=== PATIENT | female | born 1990 | race Caucasian/White ===

== ENCOUNTER 2017-11-04 22:23 | Emergency (ER) | payer MEDICAID ==
[2017-11-04 22:30] VITALS: PULSE 60; TEMP 97.7; O2SAT 99
[2017-11-04] MEDS ORDERED: Lidocaine 1% Inj (20ml) INFIL ONE (22:45)
[2017-11-04] MEDS ORDERED: Lidocaine 2% MPF (5 ml) Inj ONE (22:58)
[2017-11-04] MEDS ORDERED: Bacitracin 500 Units/gm Oint Foilpak UD ONE (23:29)
--- NOTE | 2017-11-04 23:37 | C.PDOC ---
History Of Present Illness 27 year old female presents to the ED for an evaluation of fish hook stuck to her right 2nd finger prior to arrival after casting it while fishing. She denies any sensory changes. Patient reports she is UTD with tetanus vaccination. Time Seen by Provider: 11/04/17 22:39 Chief Complaint (Nursing): Abnormal Skin Integrity History Per: Patient History/Exam Limitations: no limitations Onset/Duration Of Symptoms: Hrs Current Symptoms Are (Timing): Still Present Location Of Injury: Right: Hand (right 2nd finger ) Quality Of Symptoms: Painful Past Medical History Reviewed: Historical Data, Nursing Documentation, Vital Signs Vital Signs: Last Vital Signs Temp 97.7 F 11/04/17 22:26 Pulse 60 11/04/17 22:26 Resp 20 11/04/17 23:43 BP Pulse Ox 99 11/05/17 01:44 - Medical History PMH: No Chronic Diseases Surgical History: No Surg Hx Family History: States: No Known Family Hx - Social History Hx Tobacco Use: No Hx Alcohol Use: No Hx Substance Use: No Review Of Systems Except As Marked, All Systems Reviewed And Found Negative. Musculoskeletal: Positive for: Other (Pain to right 2nd finger ) Neurological: Positive for: Numbness Physical Exam - Physical Exam Appears: Well, Non-toxic, No Acute Distress Skin: Warm, Dry Head: Atraumatic, Normacephalic Eye(s): bilateral: Normal Inspection, EOMI Nose: Normal Oral Mucosa: Moist Neck: Normal ROM, Supple Chest: Symmetrical Respiratory: No Accessory Muscle Use, Other (Speaking full sentences ) Extremity: Normal ROM, Capillary Refill (<2 sec), Other (Fish hook noted to the distal aspect of right 2nd finger ) Pulses: Left Radial: Normal, Right Radial: Normal Neurological/Psych: Oriented x3, Normal Cognition, Normal Motor, Normal Sensation Gait: Steady ED Course And Treatment O2 Sat by Pulse Oximetry: 99 (RA) Pulse Ox Interpretation: Normal - Other Rad 2nd finger xr X-Ray: Interpreted by Me, Viewed By Me Interpretation: (+) fb, no bone involvement Progress Note: Patient given Keflex 500mg PO. Hook removed without difficulty, discussed signs of concern for wound infection and wound care. Reassessment Condition: Improved Medical Decision Making Medical Decision Making: Foreign Body removal: Performed by the emergency provider Timeout: A timeout to verify the correct patient, procedure, and site was performed immediately prior to the procedure. Indication: Foreign body in right second finger Procedure: The fish hook was removed using lidocaine 1%. No incision was made Post-procedure: Patient tolerated the procedure well with no immediate complications. The foreign body was removed without difficulty. Disposition - Disposition Disposition: HOME/ ROUTINE Disposition Time: 23:36 Condition: STABLE Additional Instructions: Keep clean and dry. Watch for signs of infection including redness, swelling and discharge. 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 - Scribe Statement The provider has reviewed the documentation as recorded by the Scribe Honey Guerra All medical record entries made by the Jaymeibmelissa were at my direction and personally dictated by me. I have reviewed the chart and agree that the record accurately reflects my personal performance of the history, physical exam, medical decision making, and the department course for this patient. I have also personally directed, reviewed, and agree with the discharge instructions and disposition.
[2017-11-04 23:44] VITALS: RESP 20
--- NOTE | 2017-11-05 09:13 | RAD ---
Date of service: 11/04/2017 PROCEDURE: Right Index finger radiographs. HISTORY: fb COMPARISON: None. TECHNIQUE: AP radiograph of the right hand, as well as spot oblique and lateral images of index finger were obtained. FINDINGS: RIGHT INDEX FINGER: No fracture or dislocation present JOINTS: Normal. SOFT TISSUES: A fishing hook is lodged in the soft tissues of the distal 2nd digit tip is a few mm away from the volar distal phalangeal cortex. No cortical interruption or intra osseous involvement apparent. OTHER FINDINGS: None. IMPRESSION: A fishing hook is lodged in the soft tissues of the distal 2nd digit tip is a few mm away from the volar distal phalangeal cortex. No cortical interruption or intra osseous involvement apparent.
== END 2017-11-04 23:43 | disposition home or self-care (01) ==
LOC: C.ER 22:23
DX: S60.450A Superficial foreign body of right index finger, initial encounter (principal); W26.8XXA Contact with other sharp object(s), not elsewhere classified, initial encounter